=== PATIENT | male | born 1990 | race Caucasian/White ===

== ENCOUNTER 2019-07-22 21:04 | Emergency (ER) | payer OTHER ==
[2019-07-22 21:54] VITALS: BMI 21.7
[2019-07-22] MEDS ORDERED: ACETAMINOPHEN 325 MG TABLET (FP) PO ONE (23:38)
--- NOTE | 2019-07-22 23:39 | PDOC ---
History of Present Illness - General Chief Complaint: Pain Stated Complaint: PAIN Time Seen by Provider: 07/22/19 23:35 History Source: Patient Exam Limitations: No Limitations - History of Present Illness Initial Comments: HPI: 28 y/o male presenting to [facility] complaining of four days of persistent right groin pain. Described as a pulling sensation that starts at the top right side of the scrotum and radiates to the right inner thigh. Started after heavy lifting at work. Worse with walking. Denies testicular pain, lower abdominal pain, vomiting, diarrhea, hematuria, dysuria, or penile discharge. Attempted relief with OTC Tylenol and Advil - transient relief. Sought evaluation at [facility] on Sunday but "they didn't do anything for me so I left." [facility] Search Ref # [id number] - No results. Social Hx: - EtOH: Occasionally, nothing in past two days - Tobacco: Daily smoker - Street Drugs: Marijuana and PCP user, a little bit earlier toady Sexual Hx: - to female - Single female partner in last six months - No h/o STDs Medical Hx: - H/o chronic back pain secondary to traumatic injury Surgical Hx: - Denies past surgical history Review of Systems: In addition to that documented in the HPI above, the additional ROS was obtained : Constitutional- Denies fevers or chills Head- Denies vision changes ENMT- Denies sore throat CV- Denies chest pain Resp- Denies SOB GI- Denies vomiting or diarrhea - Denies painful urination MSK- Per HPI Skin- Denies new rashes Neuro- Denies new numbness or tingling or weakness Endocrine- Denies polyuria Heme- Denies bleeding or bruising Physical Examination: Vital signs and nursing notes reviewed. Constitutional- Well-developed, well-nourished adult male in no acute distress but mild obvious discomfort. Found semi-fowlers on hospital hallway stretcher. Able to walk (with limp) to room for private exam. Answered all questions appropriately and completely. Head- Normocephalic. No obvious external signs of trauma. Neck- Supple, trachea is midline. Cardiovascular / Chest- Regular rate and regular rhythm. No murmur, rubs, clicks , or gallops. Peripheral pulses- radial pulses full. Respiratory- Breathing unlabored. Equal chest rise and fall. Clear to auscultation bilaterally. No stridor, no wheezing, no rhonchi. Gastrointestinal- abdomen is soft, non-tender, non-distended. No hepatosplenomegaly. No pulsatile masses. No overlying skin lesions or obvious signs of trauma. Male : Genital exam revealed normally developed male genitalia. Two descended testicules with normal lay. Circumcised male penis. Possible small right inguinal hernia, but tenderness is more severe along the leg. No scrotal mass or tenderness. No inguinal lymphadenopathy. No perineal or perianal abnormalities are seen. No genital lesions or urethral discharge. [employer] member other ranks chaperoned exam. Neuro- Alert and oriented x4. Moving all four extremities spontaneously. Skin- Warm, dry, and intact. - No R or L CVA tenderness. Psych- Affect- appropriate. Mood- normal. Speech was non-labored, non- pressured. MDM: 28 y/o male presenting with right groin pain without urinary or GI symptoms. No high risk sexual behavior identified. Afebrile. Vitals unremarkable for hypotension or tachycardia. Physical exam as described above. UA unremarkable for nitrites, leukocyte esterase, or pyuria. U/S revealed right epididymal head cyst. Low suspicion for cause of pain given location. Suspect likely groin strain. Will prescribe PRN Naproxen. Discussed physical exam findings, laboratory results, and ultrasound findings with pt. Answered all questions. Provided return precautions. pt expressed verbal understanding and agreement with plan to discharge home with outpatient follow up. Provided copies of todays results. Henri Yepez M.D., PGY2 Emergency Medicine Resident Past History - Past Medical History Allergies/Adverse Reactions: Allergies Allergy/AdvReac Type Severity Reaction Status Date / Time No Known Allergies Allergy Verified 07/22/19 21:51 Home Medications: Ambulatory Orders Chlorhexidine Gluconate [Hibiclens For Decolonization -] 1 applic TP DAILY #1 bottle 10/01/15 Oxycodone HCl/Acetaminophen [Percocet 5-325 mg Tablet -] 1 - 2 tab PO Q4H PRN # 7 tablet MDD 4 10/01/15 Sulfamethoxazole/Trimethoprim [Bactrim *Ds*] 1 each PO BID #14 tablet 10/01/15 Naproxen [Naprosyn -] 500 mg PO BID PRN 7 Days #14 tablet 07/23/19 COPD: No Other medical history: Pt denies - Psycho Social/Smoking Cessation Hx Smoking History: Current every day smoker Have you smoked in the past 12 months: No Number of Cigarettes Smoked Daily: 20 Information on smoking cessation initiated: No Hx Alcohol Use: No Drug/Substance Use Hx: No Substance Use Type: Marijuana *Physical Exam - Vital Signs Last Vital Signs Temp Pulse Resp BP Pulse Ox 98.2 F 101 H 20 123/76 97 07/22/19 21:51 07/22/19 21:51 07/22/19 21:51 07/22/19 21:51 07/22/19 21:51 ED Treatment Course - RADIOLOGY Radiology Studies Ordered: Category Date Time Status SCROTUM AND CONTENTS US [US] Stat Ultrasound 07/22/19 23:39 Ordered Radiograph Interpretation: Scrotal U/S: THIS IS A PRELIMINARY REPORT FROM [facility] DATE OF SERVICE: 2019-07-23 00:43:28 IMAGES: 59 EXAM: ULTRASOUND SCROTUM and DUPLEX SCROTAL CONTENTS (INCLUDES ARTERIAL AND VENOUS IMAGING) No testicular torsion bilaterally. Color flow with appropriate arterial and/or venous waveforms. Unremarkable left epididymis. 6 mm right epididymal head cyst. No hydroceles. THIS DOCUMENT HAS BEEN ELECTRONICALLY SIGNED Kajal Mario M.D. 07/23/2019 01:40 EST Discharge - Discharge Information Problems reviewed: Yes Clinical Impression/Diagnosis: Right groin pain Condition: Good Disposition: HOME - Admission No - Additional Discharge Information Prescriptions: Naproxen [Naprosyn -] 500 mg PO BID PRN 7 Days #14 tablet PRN Reason: Pain Prescription Drug Monitoring Program (I-STOP) results: I-STOP reviewed and no issues identified - Follow up/Referral Referrals: Hardy Fischer [Primary Care Provider] - - Patient Discharge Instructions Patient Printed Discharge Instructions: DI for Groin Strain, Naproxen Additional Instructions: You were seen today for right groin pain that moves into your right leg. Your ultrasound was normal. Your urine test was normal. You likely pulled a muscle in your leg. I have sent a prescription for a pain medication called Naproxen to your pharmacy. Take as directed on the package insert. Do not exceed the recommended dosage. Do not take with other NSAID medications such as Ibuprofen, Advil, or Motrin. Follow up with your primary care doctor in the next week or as needed. You will need to call to make an appointment. The number is included in this packet. A copy of todays results are attached to this packet. Take it to the appointment so your doctor can review them. Go to the nearest emergency department if your condition worsens or you feel like you need additional emergency evaluation. Print Language: PORTUGUESE - Post Discharge Activity Work/Back to School Note: Back to Work
[2019-07-23 00:31] LABS: PH,URINE 7.5 (5.0-8.0); URINE APPEARANCE CLEAR; URINE BILIRUBIN NEGATIVE (NEGATIVE); URINE COLOR YELLOW; URINE GLUCOSE (UA) NEGATIVE (NEGATIVE); URINE KETONE NEGATIVE (NEGATIVE); URINE LEUK ESTERASE NEGATIVE (NEGATIVE); URINE NITRITE NEGATIVE (NEGATIVE); URINE PROTEIN NEGATIVE (NEGATIVE)
[2019-07-23] MEDS ORDERED: ACETAMINOPHEN 325 MG TABLET (FP) ONE (00:40)
--- NOTE | 2019-07-23 00:42 | PDOC ---
Documentation entered by Naren Sadler SCRIBE, acting as scribe for Brittani Gabriel MD. Brittani Gabriel MD: This documentation has been prepared by the Viktoriya anaya Xhesika, SCRIBE, under my direction and personally reviewed by me in its entirety. I confirm that the documentation accurately reflects all work, treatment, procedures, and medical decision making performed by me. Attending Attestation - Resident Resident Name: Henri Yepez - ED Attending Attestation I have performed the following: I have examined & evaluated the patient, The case was reviewed & discussed with the resident, I agree w/resident's findings & plan, Exceptions are as noted - HPI HPI: 07/23/19 00:10 The patient is a 28 year old male with no significant PMH of who presents to the emergency department for 5 days of R groin pain. Pt describes his pain as a "pulling" sensation that begins at his R scrotum in his thigh radiating to the right inner thigh, associated with R pelvic discomfort and aggravated with moving his leg >45 degrees and walking. The patient states he works at [employer] and does heavy lifting. Pt reports taking tylenol and Advil with mild relief of symptoms. Pt states he used a "little bit" of PCP today. The patient denies chest pain, shortness of breath, headache and dizziness. Denies fever, chills, cough, nausea, vomiting, diarrhea and constipation. Denies dysuria, frequency, urgency and hematuria. Allergies: NKDA Social Hx: alcohol, marijuana and PCP use. - Physicial Exam PE: 07/23/19 00:11 GENERAL: Awake, alert, and fully oriented, in no acute distress HEAD: No signs of trauma EYES: PERRLA, EOMI, sclera anicteric, conjunctiva clear ENT: Auricles normal inspection, hearing grossly normal NECK: Normal ROM, supple, no lymphadenopathy, JVD, or masses LUNGS: Breath sounds equal, clear to auscultation bilaterally. No wheezes, and no crackles HEART: Regular rate and rhythm, normal S1 and S2, no murmurs, rubs or gallops ABDOMEN: Soft, nontender, normoactive bowel sounds. No guarding, no rebound. No masses EXTREMITIES: Normal range of motion, no edema. No clubbing or cyanosis. No cords, erythema, or tenderness NEUROLOGICAL: Cranial nerves II through XII grossly intact. Normal speech, normal gait SKIN: Warm, Dry, normal turgor, no rashes or lesions noted. 07/23/19 01:48 - Medical Decision Making 07/23/19 01:44 Ultrasound scrotum results No testicular torsion bilaterally. Color flow with appropriate arterial and/or venous waveforms Unremarkable left epididymitis, 6 mm right epididymal head cyst No hydroceles Urinalysis was negative impression musculoskeletal strain, epididymal head cyst d/c home RX naproxen 07/23/19 01:50
[2019-07-23 02:13] VITALS: BP 107/69; PULSE 80; TEMP 98.1
== END 2019-07-23 02:15 | disposition home or self-care (01) ==
LOC: JER 21:04
DX: R10.31 Right lower quadrant pain (principal); F17.210 Nicotine dependence, cigarettes, uncomplicated
CPT/HCPCS: 76870-TC; 81003; 87086; 99283-25